=== PATIENT | male | born 1970 | race Caucasian/White ===

== ENCOUNTER 2020-09-06 07:58 | Outpatient (CLI) | payer BC, SELFPAY ==
--- NOTE | 2020-09-06 08:27 | ECG_ITS ---
[facility] Test Date: 2020-09-06 Pat Name: Mino García Department: Room: Gender: Male Diesel Lube Tech: Lindsay Thomas : 1970 Requested By: Jian Burleson Order Number: [id number] Alexandre MD: Barbara Hanna M.D. Interpretive Statements NAME OF STUDY: EXERCISE SESTAMIBI STRESS TEST INDICATION: Chest Pain PROCEDURE: The baseline electrocardiogram showed normal sinus rhythm with normal ST-Ts. At the baseline, the patient's blood pressure was 140/80 mm Hg with a heart rate of 74. The patient exercised for 7 minutes and 40 seconds on a standard Jesús protocol. Patient attained a maximum heart rate of 156 beats per minute(91% of the maximum predicted heart rate) with a blood pressure at the peak exercise of 211/74 mm Hg. The EKG at the peak exercise revealed no significant changes. Patient did not have any chest pain or any significant arrhythmis with the exercise Sestamibi was injected 1 minute prior to the peak exercise During the recovery phase, there were no new changes. Blood pressure at the end of the recovery phase was 171/87 mm Hg with a heart rate of 86 per minute. CONCLUSION: 1. No significant EKG changes with the with [treadmill exercise 2. No exercise-induced chest pain or cardiac arrhythmia 3. Slightly impaired exercise tolerance, attained a maximum of 10.2 METs 4. Sestamibi/Sestamibi perfusion results pending; see separate report. Electronically Signed On 09-10-2020 17:02:36 CDT by Barbara Hanna M.D. [email or web address]/store/[id number]
[2020-09-06 08:28] VITALS: BMI 33.3
--- NOTE | 2020-09-06 08:28 | NMCV_ITS ---
NM mickie perf SPECT r/s* [id number] Mino García Age: 49 Gender: M : 1970 Exam Date: 09/06/2020 09:23 Ordering Phys: Jian Burleson M.D ([email or web address]) Technologist: CARLEY Weathers Exam Location: [facility] Indications: CHEST PAIN STRESS TEST Please see separate stress test report [facility] for full findings IMAGE PROTOCOL Rest/Stress 1 Exercise Day Radiopharmaceutical Dose (mCi) Administration Site Administered by Rest: Tc-99m 10.7 IV CARLEY Coello Sestamibi Stress:Tc-99m 32.8 IV CARLEY Coello Sestamidebbie Rest: 06-Sep-2020 60 Discovery 630 Stress: 06-Sep-2020 15 Discovery 630 Radiopharmaceutical was injected at 85 % maximum heart rate. Images obtained in supine and prone position. SPECT RESULTS Technical Quality: Excellent Raw Data Analysis: Normal Image Corrections: No attenuation or motion correction applied Summed Stress Score: 2 Summed Rest Score: 0 Summed Difference Score: 2 PERFUSION FINDINGS There is a small in size, reversible perfusion defect in the apical wall. This is consistent with ischemia FUNCTIONAL RESULTS (calculated via Gated SPECT) Stress Image LV EF (%): 73 Stress EDV (mL):130 TID: 0.94 Stress ESV (mL):35 FUNCTIONAL FINDINGS: There is normal left ventricular systolic function. IMPRESSIONS 1. There is a reversible perfusion defect in the apical wall consistent with ischemia 2. LV systolic function is normal Jian Burleson MD (Electronically Signed) Final Date: 06 September 2020 19:31 S
[2020-09-06 10:03] VITALS: BP 186/71; PULSE 90
== END 2020-09-06 07:59 | disposition home or self-care (01) ==
LOC: CDL 08:01
PROVIDERS: PCP Family Medicine; Visit Provider Internal Medicine
DX: R07.9 Chest pain, unspecified (principal)
CPT/HCPCS: 78452; 93017; A9500

== ENCOUNTER 2020-11-01 09:51 | Emergency (ER) | payer BC, SELFPAY ==
[2020-11-01 09:57] VITALS: BP 141/87; PULSE 67; RESP 15; TEMP 36.8; O2SAT 98; BMI 33.0
--- NOTE | 2020-11-01 09:59 | XR_ITS ---
WS: [id number] Exam: XR chest 1V portable [id number] Date/Time of Exam: 11/01/2020 10:24 AM Reason For Exam: chest pain No priors. Findings: The lungs are clear and fully expanded. Costophrenic angles are sharp. No infiltrates. Bronchovascula r relief appears normal. Cardiac silhouette is unremarkable. Bony elements are intact. XR/XR chest 1V portable [id number] IMPRESSION: Unremarkable chest radiograph.
--- NOTE | 2020-11-01 09:59 | ECG_ITS ---
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 Measurements Intervals [place] Rate: 66 P: 44 DC: 180 QRS: 9 QRSD: 101 T: 21 QT: 386 QTc: 405 Interpretive Statements SINUS RHYTHM No previous ECG available for comparison Electronically Signed On 11-01-2020 16:15:13 CDT by Jian Burleson M.D. [id number] f
[2020-11-01 10:05] VITALS: O2SAT 97
--- NOTE | 2020-11-01 10:09 | ED_ITS ---
HPI - Chest Pain General: Chief Complaint: Chest Pain Stated Complaint: cp Time Seen by Provider: 11/01/20 09:59 Source: patient Mode of arrival: ambulatory Limitations: no limitations History of Present Illness: HPI narrative: Patient is a 50-year-old male with a history of hypertension, hyperlipidemia, tobacco acuse, and obstructive sleep apnea here along with his for complaints of chest pain. Patient tells me chest pain began abruptly approximately an hour ago while driving. He states pain is located substernally. There is no radiation into his arms, back, or nec k. He does not complain of shortness of breath or difficulty breathing. Nurse stated patient was mildly diaphoretic upon arrival. Patient sees Dr. Butcher for cardiology. He underwent stress test in August of this year. There was one small area of ischemia present. Dr. Butcher recommended coronary angiogram however patient's insurance denied so they decided to treat medically. Patient states he has had chest pains before but nothing like this . He currently rates pain at a 6/10. Sestamibi stress test: CONCLUSION: 1. No significant EKG changes with the with treadmill exercise 2. No exercise-induced chest pain or cardiac arrhythmia 3. Slightly impaired exercise tolerance, attained a maximum of 10.2 METs 4. Sestamibi/Sestamibi perfusion results pending; see separate report. Myocardial Perfusion Scan: IMPRESSIONS 1. There is a reversible perfusion defect in the apical wall consistent with ischemia 2. LV systolic function is normal Associated symptoms: Deny abdominal pain, dyspnea, fever(s), nausea, palpitations, syncope or vomiting Review of Systems Const: Denies: fever(s), chills, body aches, fatigue or malaise Eyes: Denies: change in vision or blurry vision ENMT: Denies: throat pain or odynophagia Card: Reports: chest pain and dyspnea on exertion; Denies: palpitations, irregular heart rhythm, edema, swelling of feet/ankles, lightheadedness, syncope, pre-syncope, orthopnea, leg pain with exertion or acrocyanosis Resp: Denies: dyspnea, productive cough, non-productive cough, hemoptysis or chest congestion GI: Denies: abdominal pain, nausea, vomiting or diarrhea Musc: Denies: neck pain or back pain Skin/Breast: Denies: rash Neuro: Denies: headache(s), numbness in extremities, weakness in extremities, sensory changes, difficulty walking or dizziness [facility] ED PFSH: Medical History Gout Hyperlipidemia Hypertension Obstructive sleep apnea Peptic ulcer disease Tremor Surgical History H/O arthroscopy Hx of appendectomy Family History Father CAD (coronary artery disease) Brother CAD (coronary artery disease) Social History Smoking and tobacco status: former smoker Alcohol intake: never Physical Exam Const: COMMON NORMALS: no acute distress, patient oriented x3, no limitations and alert GENERAL APPEARANCE: cooperative NUTRITIONAL APPEARANCE: overwei ght ORIENTATION/CONSCIOUSNESS: Yes awake, Yes oriented to person, Yes oriented to place and Yes oriented to time HENMT: COMMON NORMALS: normocephalic and atraumatic HEAD & SCALP: normocephalic and atraumatic Chest: COMMONS NORMALS: normal inspection of the chest and normal palpation of entire chest wall Resp: COMMON NORMALS: normal respiratory effort and clear to auscultation bilaterally AUSCULTATION: clear to auscultation bilaterally Cardio: COMMON NORMALS: regular rate and regular rhythm RATE: regular rate RHYTHM: regular rhythm GI: COMMON NORMALS: Normal to inspection, nondistended, normoactive bowel sounds present, Soft to palpation, non-tender, No hepatosplenomegaly present and no masses PALPATION: Yes Soft to palpation and Yes No hepatosplenomegaly present Extremity: COMMON NORMALS: normal to inspection, full ROM, capillary refill normal, no calf tenderness and no pedal edema GENERAL: Yes normal exam except as noted Neuro: COMMON NORMALS: patient oriented x3, moves all extremities, no focal motor deficits and no sensory deficits noted SENSORIUM/ORIENTATION: Yes alert, Yes oriented to person, Yes oriented to place and Yes oriented to time Skin: COMMON NORMALS: no rashes or lesions noted GENERAL SKIN EXAM: no rashes or lesions noted TRAUMA: no lacerations or abrasions Course Vital Signs: Vital signs: Vital Signs Temperature 98.2 F 11/01/20 09:57 Pulse Rate 56 L 11/01/20 13:38 Respiratory Rate 16 11/01/20 13:38 Blood Pressure 114/79 11/01/20 13:38 Pulse Oximetry 98 11/01/20 13:38 MDM - Chest Pain MDM Narrative: Medical decision making narrative: Patient's pain has improved while here. His initial and repeat EKG shows no ischemic changes. Initial troponin was 9 with a negative delta. Patient's optometrist president/practice owner Dr. Burleson is not on-call until 3 today (we don't have anyone for interventional on now). Patient just had stress completed two months ago. There would not be any point to admit to hospitalist unless Dr. Burleson wanted to perform angiogram. I discussed case with Dr. Jurado who agrees. I went in to speak to patient about paging Dr. Burleson and seeing if he would like to admit patient for this procedure however patient states he would like to be discharged and follow up with him as an outpatient. I think this is reasonable given his negative trops and EKGs. Strict return to ED precautions given. Lab Data: Labs: Lab Results 11/01/20 11/01/20 11/01/20 Range/Units 10:15 10:15 10:15 WBC 5.6 (4.0-10.0) 10^3/ uL RBC 5.03 (4.1-5.3) 10^6/u L Hgb 14.7 (11.7-16.6) g/dL Hct 43.4 (42.0-52.0) % MCV 86.3 (80-94) fL MCH 29.2 (28.0-34.0) pg MCHC 33.9 (30.0-36.0) g/dL RDW 12.8 (12.1-15.1) % Plt Count 199 (130-400) 10^3/c mm MPV 10.6 H (7.4-10.4) fL Neut % (Auto) 63.2 % Lymph % (Auto) 24.7 % Garrett % (Auto) 7.3 % Eos % (Auto) 3.2 % Baso % (Auto) 1.1 % Neut # (Auto) 3.52 (1.8-7.7) 10^3/u L Lymph # (Auto) 1.4 (0.8-4.8) 10^3/u L Garrett # (Auto) 0.4 (0.2-0.9) 10^3/u L Eos # (Auto) 0.2 (0.0-0.8) 10^3/u L Baso # (Auto) 0.1 (0.0-0.1) 10^3/u L Nucleated RBC % (a uto) 0 % Nucleated RBCs # 0.0 /100WBC Sodium 144 (136-145) mmol/L Potassium 4.4 (3.5-5.1) mmol/L Chloride 110 H (98-107) mmol/L Carbon Dioxide 23 (22-29) mmol/L Anion Gap 15.4 (5-19) BUN 12 (6-20) mg/dL Creatinine 0.7 (0.7-1.2) mg/dL GFR Calculation 118.9 (90-130) mL/min Glucose 85 (65-115) mg/dL Calculated Osmolal ity 297 H (285-295) mOsm/k g Calcium 9.1 (8.5-10.5) mg/dL Total Bilirubin 0.3 (0.15-1.2) mg/dL AST 16 (0-40) U/L ALT 19 (0-41) U/L Alkaline Phosphata se 86 (40-130) IU/L Troponin T Baselin e 9 (0-15) ng/L Troponin T 120 Min [place] (0-15) ng/L Delta Troponin T (0-10) ABS# Total Protein 6.3 L (6.6-8.7) g/dL Albumin 4.9 (3.5-5.2) g/dL Globulin 1.4 (1.3-4.6) g/dL 11/01/20 Range/Units 12:41 WBC (4.0-10.0) 10^3/ uL RBC (4.1-5.3) 10^6/u L Hgb (11.7-16.6) g/dL Hct (42.0-52.0) % MCV (80-94) fL MCH (28.0-34.0) pg MCHC (30.0-36.0) g/dL RDW (12.1-15.1) % Plt Count (130-400) 10^3/c mm MPV (7.4-10.4) fL Neut % (Auto) % Lymph % (Auto) % Garrett % (Auto) % Eos % (Auto) % Baso % (Auto) % Neut # (Auto) (1.8-7.7) 10^3/u L Lymph # (Auto) (0.8-4.8) 10^3/u L Garrett # (Auto) (0.2-0.9) 10^3/u L Eos # (Auto) (0.0-0.8) 10^3/u L Baso # (Auto) (0.0-0.1) 10^3/u L Nucleated RBC % (a uto) % Nucleated RBCs # /100WBC Sodium (136-145) mmol/L Potassium (3.5-5.1) mmol/L Chloride (98-107) mmol/L Carbon Dioxide (22-29) mmol/L Anion Gap (5-19) BUN (6-20) mg/dL Creatinine (0.7-1.2) mg/dL GFR Calculation (90-130) mL/min Glucose (65-115) mg/dL Calculated Osmolal ity (285-295) mOsm/k g Calcium (8.5-10.5) mg/dL Total Bilirubin (0.15-1.2) mg/dL AST (0-40) U/L ALT (0-41) U/L Alkaline Phosphata se (40-130) IU/L Troponin T Baselin e (0-15) ng/L Troponin T 120 Min [place] 8.14 (0-15) ng/L Delta Troponin T -0.86 L (0-10) ABS# Total Protein (6.6-8.7) g/dL Albumin (3.5-5.2) g/dL Globulin (1.3-4.6) g/dL Imaging Data^: CXR: Radiologist's impression: [address] [id number] ReportSigned Patient: Marcus García #: [id number]: 1970Acct#:[id number]/Sex: 50 / MADM Date: 11/01/20Loc: ERRoom/Bed:Attending Dr: Ordering Provider/Ordering MD: Valentine Drew Date of Service: 11/01/20 Procedure(s): XR chest 1V portable [id number] Accession Number(s): [id number] Report Number: [id number] WS: [id number] Exam: XR chest 1V portable [id number] Date/Time of Exam: 11/01/2020 10:24 AM Reason For Exam: chest pain No priors. Findings: The lungs are clear and fully expanded. Costophrenic angles are sharp. No infiltrates. Bronchovascular relief appears normal. Cardiac silhouette is unremarkable. Bony elements are intact. XR/XR chest 1V portable [id number] IMPRESSION: Unremarkable chest radiograph. Dictated By:Jacques Leos, DOSigned By:Jacques Leos, DOSigned Date/Time:11/01/209DD/ 103 EKG Data^: EKG 1: EKG interpretation date: 11/01/20 EKG interpretation time: 09:59 Interpretation: Sinus rhythm Rate [address] elevation or depression changes noted EKG 2: EKG interpretation date: 11/01/20 EKG interpretation time: 12:04 Interpretation: Sinus bradycardia Rate [address] elevation or depression changes noted No acute changes when compared to EKG performed earlier on same visit Discharge Plan Discharge Patient Disposition: Home Clinical Impression: Chest pain Qualifiers: Chest pain type: unspecified Qualified Code(s): R07.9 - Chest pain, unspecified Condition: Stable Prescriptions: No Action albuterol sulfate 90 mcg/actuation HFA aerosol inhaler 2 puff inhalation Q6H PRN (Reason: Shortness Of Breath) RF: 0 allopurinol 100 mg tablet 100 mg PO DAILY RF: 0 cabergoline 0.5 mg tablet 0.5 mg PO .2 x week RF: 0 colchicine [Colcrys] 0.6 mg tablet 0.6 mg PO BID PRN (Reason: gout) RF: 0 loratadine [Allergy Relief (loratadine)] 10 mg tablet 10 mg PO DAILY RF: 0 omeprazole 20 mg capsule,delayed release(DR/EC) 20 mg PO DAILY RF: 0 ropinirole 0.25 mg tablet 0.25 mg PO BEDTIME RF: 0 simvastatin 20 mg tablet 20 mg PO DAILY RF: 0 metoprolol succinate 25 mg tablet extended release 24 hr 25 mg PO DAILY Qty: 30 RF: 0 amlodipine 5 mg tablet 5 mg PO DAILY Qty: 90 RF: 3 Discharge Orders: Discharge ED (Routine); Ordered 11/01/20 Ordered By: Valentine Drew Referrals: Caim Fair MD [Primary Care Provider] - Jian Burleson M.D [Physician] - Patient Instructions: Chest Pain (ED) Activity Restrictions/Additional Instructions: As we discussed case management should contact you shortly to set you up with your optometrist president/practice owner for reevaluation. You need to return to the emergency department for the return of severe chest pain, shortness of breath, difficulty breathing, or any other concerns you may have. Coding Level of Care Code ED Sales And Service Change Leader for [place] Fwd Exam Comprehensive
[2020-11-01 10:22] LABS: Basophils # 0.1 10^3/uL (0.0-0.1); Basophils % 1.1 %; Eosinophils # 0.2 10^3/uL (0.0-0.8); Eosinophils % 3.2 %; Hematocrit 43.4 % (42.0-52.0); Hemoglobin 14.7 g/dL (11.7-16.6); Lymphocytes # 1.4 10^3/uL (0.8-4.8); Lymphocytes % 24.7 %; Mean Corpuscular HGB Conc 33.9 g/dL (30.0-36.0); Mean Corpuscular Hemoglobin 29.2 pg (28.0-34.0); Mean Corpuscular Volume 86.3 fL (80-94); Mean Platelet Volume 10.6 fL (7.4-10.4); Monocytes # 0.4 10^3/uL (0.2-0.9); Monocytes % 7.3 %; Neutrophils # 3.52 10^3/uL (1.8-7.7); Neutrophils % 63.2 %; Nucleated Red Blood Cells % 0 %; Platelet Count 199 10^3/cmm (130-400); Red Blood Count 5.03 10^6/uL (4.1-5.3); Red Cell Distribution Width 12.8 % (12.1-15.1); White Blood Count 5.6 10^3/uL (4.0-10.0)
[2020-11-01] MEDS: aspirin 81 mg Chew Tablet 324 MG PO (10:26)
[2020-11-01] MEDS: nitroglycerin 0.4 mg sublingual Tablet SUBLINGUAL (10:26)
[2020-11-01] MEDS: morphine 4 mg/mL SDV 1 mL IVP (10:26)
[2020-11-01 11:00] LABS: Troponin(5th) Baseline 9 ng/L (0-15)
[2020-11-01 11:01] LABS: Alanine Aminotransferase 19 U/L (0-41); Albumin Level 4.9 g/dL (3.5-5.2); Alkaline Phosphatase 86 IU/L (40-130); Anion Gap 15.4 (5-19); Aspartate Amino Transferase 16 U/L (0-40); Blood Urea Nitrogen 12 mg/dL (6-20); Calcium 9.1 mg/dL (8.5-10.5); Carbon Dioxide 23 mmol/L (22-29); Chloride 110 mmol/L (98-107); Globulin 1.4 g/dL (1.3-4.6); Glomerular Filtration Rate 118.9 mL/min (90-130); Glucose 85 mg/dL (65-115); Osmolality Calculated 297 mOsm/kg (285-295); Potassium 4.4 mmol/L (3.5-5.1); Sodium 144 mmol/L (136-145); Total Bilirubin 0.3 mg/dL (0.15-1.2); Total Protein 6.3 g/dL (6.6-8.7)
[2020-11-01 11:07] VITALS: BP 106/59; PULSE 57; RESP 12; O2SAT 94
--- NOTE | 2020-11-01 11:59 | ECG_ITS ---
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 Measurements Intervals [place] Rate: 50 P: 14 DC: 183 QRS: -1 QRSD: 102 T: 22 QT: 423 QTc: 388 Interpretive Statements SINUS BRADYCARDIA Compared to ECG 11/01/2020 09:59:29 Sinus rhythm no longer present Electronically Signed On 11-01-2020 16:20:47 CDT by Jian Burleson M.D. [email or web address] Gamesallegiance specialty hospital of greenvilleMind on Gamesmercy health st. charles hospitalSolidmation/store/OM/[id number]/[id number]
[2020-11-01 13:09] LABS: Troponin 5 2HR 8.14 ng/L (0-15); Troponin 5 2HR Delta -0.86 ABS# (0-10)
[2020-11-01 13:38] VITALS: BP 114/79; PULSE 56; RESP 16; O2SAT 98
--- NOTE | 2020-11-02 13:43 | DCPLANNER ---
international sales manager had message to schedule a follow up appointment for patient with heart care. international sales manager called heart care, spoke with Megan, gave clinic patients information. A follow up appointment was scheduled for , November 18, 2020 at 3:[address] Burleson. international sales manager called patient and gave patient the appointment information.
--- NOTE | 2021-01-04 07:53 | DCPLANNER ---
Patient had a follow up appointment scheduled for 11.18.20 at [facility] [place] - appointment was cancelled.
== END 2020-11-01 13:39 | disposition home or self-care (01) ==
PROVIDERS: Emergency Provider Physician Assistant; PCP Family Medicine
DX: R07.9 Chest pain, unspecified (principal); E78.5 Hyperlipidemia, unspecified; I10 Essential (primary) hypertension; Z87.891 Personal history of nicotine dependence
CPT/HCPCS: 71045; 80053; 84484; 85025; 93005; 96374; 99284; J2270

== ENCOUNTER → 2021-04-12 09:12 | Outpatient (BNVA) | payer BC, SELFPAY | PROVIDERS: PCP Family Medicine; Visit Provider Physician Assistant | DX: M25.521 Pain in right elbow (principal) | CPT/HCPCS: 73080 ==

== ENCOUNTER 2021-04-18 07:49 | Outpatient (CLI) | payer BC, SELFPAY ==
--- NOTE | 2021-04-18 08:00 | MR_ITS ---
WS: [id number] INDICATION: Trauma right elbow with audible pop TECHNIQUE: MR of the right elbow without gadolinium enhancement. Axial T1, coronal T1, axial T2, dante nal PD, coronal STIR, sagittal PD, and axial 3-D FSPGR imaging FINDINGS: High-grade complete tear of the distal biceps tendon at the radial tuberosity insertion. Di ffuse edema and irregularity with retraction of the biceps tendon. No normal fibers visualized distal ly. Biceps tendon is retracted to the antecubital fossa. Small well-corticated appearing loose bodies at the medial aspect radialcapitellar articulation. These appear well-circumscribed and are likely c hronic rather than acute avulsions. Hypertrophic spurring with calcific tendinitis involving the lateral epicondyle compatible with later al epicondylitis. Small joint effusion. Small amount of edema involving the medial aspect of the capi tellum. Medial flexor tendon complex origin appears normal. MR/MR elbow RT wo con* [id number] IMPRESSION: 1. High-grade complete tear of the distal biceps tendon from the insertion at the radial tuberosity with retraction to the level of the antecubital fossa. La xity with fluid along the distal biceps tendon sheath. 2. Small joint effusion with soft tissue edema involving the anterior compartm ent. 3. Degenerative appearing hypertrophic spurring along the lateral epicondyle w ith calcific tendinitis compatible with lateral epicondylitis. 4. Well-corticated loose bodies appear entrapped within the joint at the radio capitellar articulation. These are likely chronic rather than acute avulsions a nd appear well corticated. 5. Small amount of subchondral edema involving the medial aspect of the capite llum adjacent to one of the loose bodies. 6. No other significant findings.
== END 2021-04-18 07:50 | disposition home or self-care (01) ==
PROVIDERS: PCP Family Medicine; Visit Provider Family Medicine
DX: S46.211A Strain of muscle, fascia and tendon of other parts of biceps, right arm, initial encounter (principal); X58.XXXA Exposure to other specified factors, initial encounter; M25.421 Effusion, right elbow
CPT/HCPCS: 73221

== ENCOUNTER → 2021-04-21 09:22 | Outpatient (BNVA) | payer BC, SELFPAY | PROVIDERS: PCP Family Medicine; Referring Provider Orthopaedic Surgery; Visit Provider Orthopaedic Surgery | DX: Z01.812 Encounter for preprocedural laboratory examination (principal); Z20.822 Contact with and (suspected) exposure to COVID-19 | CPT/HCPCS: 87635 ==

== ENCOUNTER 2021-04-28 08:30 | Day surgery (SDC) | payer BC, SELFPAY ==
[2021-04-27 10:24] VITALS: BMI 34.2
[2021-04-28] VITALS (10 sets, daily range): BP systolic 121–168; BP diastolic 76–92; PULSE 60–74; RESP 16–19; TEMP 36.3–36.5; O2SAT 94–100
--- NOTE | 2021-04-28 | XR_ITS ---
WS: [id number] Exam: XR elbow RT 2V [id number] Date/Time of Exam: 04/28/2021 12:00 AM Reason For Exam: bicep tendeon tear Limited intraoperative AP and lateral images of the right elbow are submitted for evaluation. Postoperative change with a small cortical plate noted in the region of the radial tuberosity. No oth er postoperative changes of the elbow are identified.
--- NOTE | 2021-04-28 | SCC_ITS ---
Procedure Done: Open repair right biceps 45.6 seconds of fluoroscopic guidance, for a cumulative dose of 1.67 mGy, was provided to Dr. Aviles by the radiology department. C-arm images of the RIGHT elbow were saved for the patient's permanent record. [facility]
--- NOTE | 2021-04-28 09:24 | ANES.PREANE2 ---
Pre-Anesthetic Assessment Pre-Anesthetic Assessment: Height/Weight: Height 1.85 m Weight 117.934 kg Temp Pulse Resp BP Pulse Ox 97.3 F L 60 18 121/76 100 04/28/21 08:52 04/28/21 08:52 04/28/21 08:52 04/28/21 08:52 04/28/21 08:52 Preop Diagnosis: Rupture right distal biceps Proposed Procedure: Operation Date: 04/28/21 09:45 Proposed Procedures p Tendon Repair Bicep 18055 S46.219A(Right) - Yonas Aviles MD Was Beta John taken within 24 hours: Yes Was Clonidine taken within 24 hours: N/A Last intake: Intake Last Liquid Date 04/27/21 Last Liquid Time 23:55 Last Solid Date 04/27/21 Last Solid Time 22:00 Social: Social History: No alcohol and No tobacco Exam: Pre-Anes Outpt Exam: alert, oriented x 3, clear to auscultation bilaterally and regular rate & rhythm Airway: Submandibular: WNL Cervical ROM: WNL MP: 3 Dentition: Full Pulmonary: Pulmonary: Asthma and Sleep apnea CV/HEM: CV/HEM: HTN GI: GI: GERD Metabolic: Metabolic: Hyperlipidemia and Morbid obesity Anesthetic Plan: ASA status: 3 Anesthesia: General Risk of > 500 ml blood loss (7ml/kg in children): No PFSH Anesthesia PFSH: Medical History Gout Hyperlipidemia Hypertension Obstructive sleep apnea Peptic ulcer disease Tremor Surgical History H/O arthroscopy Hx of appendectomy Family History Father CAD (coronary artery disease) Brother CAD (coronary artery disease) Social History Alcohol intake: never Data Anesthesia Cardiac Studies: No Data to Display
[2021-04-28] MEDS: sodium chloride 0.9% 1,000 ML 30 ML IV (09:50)
--- NOTE | 2021-04-28 10:01 | W.PM.OPSUD ---
Surgery/Procedure H&P Update DATE OF PROCEDURE: April 28, 2021 DATE H&P PERFORMED: 04/19/21 H&P UPDATE INFORMATION: I have reviewed H&P completed within last 30 days PREOP DIAGNOSIS: Rupture right distal biceps PLANNED PROCEDURE: Operation Date: 04/28/21 09:45 Proposed Procedures p Tendon Repair Bicep [id number] S46.219A(Right) - Yonas Aviles MD
[2021-04-28] MEDS: clindamycin 900 MG/50 ML PREMIX 100 MG IV (10:13)
--- NOTE | 2021-04-28 12:17 | PM.OP ---
Operative Report Date of procedure: April 28, 2021 Pre-op Diagnosis: Rupture right distal biceps Post-op diagnosis: same Post-op Findings: Same Procedure Done: Open repair right biceps Implants: Fuller [employer] Nephew Endobutton Pathology: none sent Surgeon: Yonas Aviles Anesthesia: General Estimated blood loss (mL): 10 Tourniquet time (min): 70 Complications: None Findings: The patient had a 90% avulsion of his right distal biceps from its insertion on the tuberosity Condition: stable Disposition: PACU Procedure: The patient was taken to the operating room and given 900 mg of clindamycin. He is prepped and draped supine with his right arm on a arm table. A transverse incision was made over the distal flexion crease over a distance of approximately 5 cm. Superficial veins were dissected using a blunt hemostat and the fascia divided revealing the biceps tendon in the near complete avulsion. Utilizing a scissor the rupture was completed and approximately 1 cm of degenerative biceps removed with a scalpel blade. A Fuller and Nephew Ultratape suture was then passed beginning proximally the tendon in a Krak?w fashion incorporating the Endobutton distally with 4 mm of the gap between the tendon and passing again proximally with locking Krak?w sutures. The free ends of the tape were then secured. The biceps tendon passed likely through a 8 mm sizer. Dissection could easily be accomplished down to the radial tuberosity through the previous tunnel. Under visualization of fluoroscopy a guidepin was driven into the radial tuberosity with the arm in maximal supination. Position of the pin was verified it was passed through the second cortex and out through the skin was grasped with a hemostat. 4.5 mm Endobutton was passed through both cortices. An 8 mm reamer was passed through the most proximal cortex. The guidepin was then used to shuttle 2 free sutures through the ends of the Endobutton through the tunnels. The Endobutton was passed and felt to engage. Intraoperative imaging showed the Endobutton flat on the dorsal cortex of the radius. The passing sutures were removed. The tourniquet was deflated. Deep tissues were closed with 2-0 Vicryl. The skin was closed with skin azul. Sterile dressings were applied. The patient placed in a hinged elbow brace locked in 40 degrees of extension and neutral rotation of the wrist. The patient was extubated and taken to the recovery room in stable condition.
--- NOTE | 2021-04-28 12:28 | P.PCN_ITS ---
PACU note PACU note: VSS, Good respiratory effort, report to AQUACULTURE AND FISHERIES PROFESSOR Post-Anesthesia Exam: awake
--- NOTE | 2021-04-28 12:28 | PM.PACU ---
PACU note PACU note: VSS, Good respiratory effort, report to PULP DRIER Post-Anesthesia Exam: awake
--- NOTE | 2021-04-28 12:35 | SUR.PHASEI ---
1224 PT TO PACU HURTING AWAKE DR UGARTE AT BEDSIDE RT HAND PINK WARM PT MOVES THUMB AND WRIST TO COMMAND, SEE DILAUDID GIVEN BY Carlie JEAN CRNA AT BEDSIDE ON ADMIT
[2021-04-28] MEDS: HYDROmorphone 1 mg/mL INJ 1 mL 0.5 MG IVP (12:43)
--- NOTE | 2021-04-28 12:57 | SUR.PHASEI ---
PT AWAKE ALERT TAKING ICE CHIPS SATS 94 ON 3NC PT USES C PAP AT HOME, PT ENCOURAGED TO USE CPAP TODAY WHILE NAPPING. REPORT TO OPS, VSS. DRESSING D/I TO RT ARM WITH LOCKED SLING/BRACE IN PLACE.
[2021-04-28] MEDS: oxyCODONE 5 mg IR Tab/Cap PO (13:18)
--- NOTE | 2021-04-28 13:41 | ANE.PACU2 ---
Inpatient post-anesthesia follow up: Airway intact: Yes Vital signs: Temperature 97.6 F Pulse Rate 72 Respiratory Rate 18 Blood Pressure 149/83 Pulse Oximetry 95 Oxygen Delivery Me thod Nasal Cannula Oxygen Flow Rate 2 Fraction of Inspir ed Oxygen Hydration adequate: Yes Nausea and vomiting: No Pain level: 3 Mental status: Baseline
== END 2021-04-28 13:45 | disposition home or self-care (01) ==
PROVIDERS: PCP Family Medicine; Visit Provider Orthopaedic Surgery
PROC: (CPT 24341; principal; 2021-04-28 09:35)
DX: M25.511 Pain in right shoulder (principal); I10 Essential (primary) hypertension; Z88.2 Allergy status to sulfonamides; X50.0XXA Overexertion from strenuous movement or load, initial encounter; Y93.89 Activity, other specified
CPT/HCPCS: 23430; 73070; 76000; J0330; J1100; J1170; J1885; J2405; J2704; J3010; J3490; J7030

== ENCOUNTER → 2022-07-12 10:58 | Outpatient (BNVA) | payer BC, SELFPAY | PROVIDERS: PCP Family Medicine; Visit Provider Podiatrist Foot & Ankle Surgery | DX: M79.671 Pain in right foot (principal); M79.672 Pain in left foot; B35.1 Tinea unguium; M20.5X1 Other deformities of toe(s) (acquired), right foot | CPT/HCPCS: 36415; 73630; 80053 ==

== ENCOUNTER → 2022-08-23 12:46 | Outpatient (BNVA) | payer BC, SELFPAY | PROVIDERS: PCP Family Medicine; Visit Provider Podiatrist Foot & Ankle Surgery | DX: B35.1 Tinea unguium (principal) | CPT/HCPCS: 80053 ==

== ENCOUNTER 2022-11-01 12:55 | Outpatient (CLI) | payer BC, SELFPAY ==
--- NOTE | 2022-11-01 13:00 | USCV_ITS ---
Mino García Age: 52 Gender: M : 1970 Exam Date: 11/01/2022 13:07 Ordering Phys: Jian Burleson M.D ([email or web address]) Technologist: Kayden Zhang Exam Location: [facility] – [place] Indication: chest pain BP: 136 / 75 HR: 63 Rhythm: Sinus Technical Quality: Adequate MEASUREMENTS (Male / Female) Normal Values 2D ECHO LV Diastolic Diameter PLAX 4.9 cm 4.2 - 5.9 / 3.9 - 5.3 cm LV Systolic Diameter PLAX 2.9 cm IVS Diastolic Thickness 1.4 cm 0.6 - 1.0 / 0.6 - 0.9 cm IVS Systolic Thickness 1.9 cm LVPW Diastolic Thickness 1.2 cm 0.6 - 1.0 / 0.6 - 0.9 cm LVPW Systolic Thickness 1.8 cm LVOT Diameter 2.0 cm LV Ejection Fraction 2D Teich 72.9 % LV Ejection Fraction MOD 2C 69.9 % LV Ejection Fraction 2C AL 70.5 % LA Diameter 4.4 cm Aorta at Sinotubular Diameter 2.6 cm IVC Diameter 1.2 cm M-MODE Aortic Annulus Diameter 3.8 cm LA Ao Ratio MM 1.2 MV E Point Septal Separation 0.9 cm DOPPLER AV Peak Velocity 172.0 cm/s LVOT Peak Velocity 101.0 cm/s AV Area Cont Eq vti 2.7 cm squared AV Area Cont Eq pk 1.9 cm squared MV Area PHT 5.0 cm squared Mitral E to A Ratio 1.2 MV E' Velocity 58.0 cm/s Mitral E to MV E' Ratio 13.1 Mitral E to LV E' Lateral Ratio 12.2 Mitral E to LV E' Septal Ratio 14.1 TR Peak Velocity 325.0 cm/s TR Peak Gradient 42.3 mmHg TV Peak E Velocity 117.0 cm/s Right Atrial Pressure 3.0 mmHg Pulmonary Artery Systolic Pressu 45.3 mmHg FINDINGS Left Ventricle Left ventricle is normal size. LV systolic function is normal with EF of 60 to 65%. No regional wall motion abnormalities are seen. Right Ventricle Normal size and function Right Atrium Normal in size Left Atrium Normal in size Mitral Valve Structurally normal mitral valve. Mild mitral regurgitation. Aortic Valve Structurally normal aortic valve. No significant stenosis or regurgitation. Tricuspid Valve Mild tricuspid regurgitation. Pulmonary artery systolic pressure is 45 to 50 mmHg. This is consistent with moderate pulmonary hypertension Pulmonic Valve Not well visualized Pericardium Normal Aorta Normal in size IVC Appears to be normal CONCLUSIONS LV systolic function is normal with EF of 60 to 65%. Mild tricuspid regurgitation. Moderate pulmonary hypertension No comparison studies are available Jian Burleson MD (Electronically Signed) Final Date: 10 November 2022 17:58 S
== END 2022-11-01 12:56 | disposition home or self-care (01) ==
LOC: RAD 12:56
PROVIDERS: PCP Family Medicine; Visit Provider Internal Medicine
DX: R07.9 Chest pain, unspecified (principal); R06.02 Shortness of breath
CPT/HCPCS: 93306

== ENCOUNTER → 2023-07-23 14:00 | Outpatient (BNVA) | payer BC, SELFPAY | PROVIDERS: PCP Family Medicine; Visit Provider Podiatrist Foot & Ankle Surgery | DX: G57.62 Lesion of plantar nerve, left lower limb; B35.1 Tinea unguium | CPT/HCPCS: 73630 ==

== ENCOUNTER 2024-01-30 09:48 | Day surgery (SDC) | payer BC, SELFPAY ==
[2024-01-30 10:23] VITALS: BP 140/86; PULSE 59; RESP 18; TEMP 36.7; O2SAT 97
--- NOTE | 2024-01-30 10:33 | ANES.PREANE2 ---
Pre-Anesthetic Assessment Height/Weight: Height 1.85 m Weight 122.47 kg Temp Pulse Resp BP Pulse Ox O2 Del Method 98.1 F 59 L 18 140/86 97 Room Air 01/30/24 10:23 01/30/24 10:23 01/30/24 10:23 01/30/24 10:23 01/30/24 10:23 01/30/24 10:23 Preop Diagnosis: GERD, H/O polyps Operation Date: 01/30/24 10:45 Proposed Procedures p EGD 17734, 61280, G0105, K21.9, K59.04, R10.31, Z12.11(Not Applicable) - Varinder Douglas DO s Colonoscopy(Not Applicable) - Varinder Douglas DO Familial anesthetic complications: none Was Beta John taken within 24 hours: N/A Was Clonidine taken within 24 hours: N/A Last intake: Intake Last Liquid Date 01/29/24 Last Liquid Time 22:00 Last Solid Date 01/28/24 Last Solid Time 20:00 Social No alcohol and No tobacco Exam alert and oriented x 3 Airway Submandibular: within normal limits Cervical ROM: within normal limits Mallampati: Class III Dentition: full History/ROS No significant history except as noted Pulmonary Exertional Dyspnea and Sleep Apnea CV/HEM Hypertension None reported Hepatic None reported GI Gastroesophageal Reflux Disease Metabolic Hyperlipidemia and Morbid Obesity Musc/skel Lower Back Pain and Osteoarthritis/DJD Neuropsych None reported Anesthetic Plan ASA status: 3 Anesthesia: Anesthesia Evaluation, General and MAC Medications/Allergies Home Medications Medication Instructions Recorded Confirmed Last Taken Type cabergoline 0.5 mg tablet 0.5 mg PO .2 x week 07/05/20 01/28/24 01/29/24 History loratadine 10 mg tablet (Allergy 10 mg PO DAILY 07/05/20 01/28/24 01/29/24 History Relief (loratadine)) ropinirole 0.25 mg tablet 0.25 mg PO BEDTIME 07/05/20 01/28/24 01/29/24 History simvastatin 20 mg tablet 20 mg PO DAILY 07/05/20 01/28/24 01/29/24 History amlodipine 10 mg tablet 10 mg PO DAILY #90 tabs 08/08/23 01/28/24 01/29/24 Rx metoprolol succinate 25 mg 25 mg PO DAILY #90 tabs 08/29/23 01/28/24 01/29/24 Rx tablet,extended release 24 hr pantoprazole 40 mg tablet,delayed 40 mg PO BID 6 weeks #84 tabs 11/09/23 01/28/24 01/29/24 Rx release (Protonix) Allergies Allergy/AdvReac Type Severity Reaction Status Date / Time cefazolin [From Ancef] Allergy Lungs fill Verified 01/28/24 08:52 up codeine Allergy Hives Verified 01/28/24 08:52 iodine Allergy Hives Verified 01/28/24 08:52 Sulfa (Sulfonamide Allergy Kidney pain Verified 01/28/24 08:52 Antibiotics) [facility] Anesthesia Medical History Gout Obstructive sleep apnea Peptic ulcer disease Tremor Hyperlipidemia Hypertension Surgical History Hx of appendectomy H/O arthroscopy Family History Father CAD (coronary artery disease) Brother CAD (coronary artery disease) Social History Smoking and tobacco/nicotine status: never used tobacco/nicotine Alcohol intake: never Substance/Drug Use: never Data Anesthesia Cardiac Studies: Echocardiogram 11/01/22 Sestamibi Stress Test (Cardiology) 09/06/20
[2024-01-30] MEDS: sodium chloride 0.9% 1,000 ML 30 ML IV (10:35)
--- NOTE | 2024-01-30 11:06 | PM.HP ---
Providers/Chief Complaint Primary Care Provider: Cami Fair MD Chief Complaint: K21.9, K59.04, R10.31, Z12.11 History of Present Illness Mino García is a 53 year old male Review of Systems General: Reports: 10 or more systems reviewed and unremarkable except in HPI and below Medications/Allergies Home Medications Medication Instructions Recorded Confirmed Last Taken Type cabergoline 0.5 mg tablet 0.5 mg PO .2 x week 07/05/20 01/28/24 01/29/24 History loratadine 10 mg tablet (Allergy 10 mg PO DAILY 07/05/20 01/28/24 01/29/24 History Relief (loratadine)) ropinirole 0.25 mg tablet 0.25 mg PO BEDTIME 07/05/20 01/28/24 01/29/24 History simvastatin 20 mg tablet 20 mg PO DAILY 07/05/20 01/28/24 01/29/24 History amlodipine 10 mg tablet 10 mg PO DAILY #90 tabs 08/08/23 01/28/24 01/29/24 Rx metoprolol succinate 25 mg 25 mg PO DAILY #90 tabs 08/29/23 01/28/24 01/29/24 Rx tablet,extended release 24 hr pantoprazole 40 mg tablet,delayed 40 mg PO BID 6 weeks #84 tabs 11/09/23 01/28/24 01/29/24 Rx release (Protonix) Allergies Allergy/AdvReac Type Severity Reaction Status Date / Time cefazolin [From Ancef] Allergy Lungs fill Verified 01/28/24 08:52 up codeine Allergy Hives Verified 01/28/24 08:52 iodine Allergy Hives Verified 01/28/24 08:52 Sulfa (Sulfonamide Allergy Kidney pain Verified 01/28/24 08:52 Antibiotics) PFSH Acute PFSH: Medical History Gout Obstructive sleep apnea Peptic ulcer disease Tremor Hyperlipidemia Hypertension Surgical History Hx of appendectomy H/O arthroscopy Family History Father CAD (coronary artery disease) Brother CAD (coronary artery disease) Social History Smoking and tobacco/nicotine status: never used tobacco/nicotine Alcohol intake: never Substance/Drug Use: never Vitals/I&O/Wt Last Vital Signs Temp 98.1 F 01/30/24 10:23 Pulse 59 L 01/30/24 10:23 Resp 18 01/30/24 10:23 BP 140/86 01/30/24 10:23 Pulse Ox 97 01/30/24 10:23 O2 Del Method Room Air 01/30/24 10:23 Weight last 48 hrs Weight 270 lb A&P Assessment and plan (1) GERD (gastroesophageal reflux disease): (2) Colon cancer screening: Plan EGD and colonoscopy Attestations Medical Necessity Statement*: Home Coding Level of Care Code Acute Code for Chg Fwd Diagnoses GERD (gastroesophageal reflux disease) K21.9 Colon cancer screening Z12.11
[2024-01-30] MEDS: EPINEPHrine 1 mg/mL INJ XX (11:22)
[2024-01-30 11:42] VITALS: BP 98/66; PULSE 67; RESP 12; TEMP 36.5; O2SAT 94
[2024-01-30 11:52] VITALS: BP 126/77; PULSE 66; RESP 14; TEMP 36.2; O2SAT 95
[2024-01-30 12:03] VITALS: BP 139/75; PULSE 66; RESP 16; O2SAT 95
--- NOTE | 2024-01-30 12:19 | ANE.PACU2 ---
Inpatient post-anesthesia follow up: Airway intact: Yes Vital signs: Temperature 97.1 F Pulse Rate 66 Respiratory Rate 16 Blood Pressure 139/75 Pulse Oximetry 95 Oxygen Delivery Me thod Room Air Oxygen Flow Rate 3 Fraction of Inspir ed Oxygen Hydration adequate: Yes Nausea and vomiting: No Pain level: 1 Mental status: Baseline
== END 2024-01-30 12:19 | disposition home or self-care (01) ==
PROVIDERS: PCP Family Medicine; Visit Provider Surgery
PROC: 0DJ08ZZ Inspection of Upper Intestinal Tract, Via Natural or Artificial Opening Endoscopic (ICD-10-PCS; CPT 43235; principal; 2024-01-30 10:45)
PROC: 0DJD8ZZ Inspection of Lower Intestinal Tract, Via Natural or Artificial Opening Endoscopic (ICD-10-PCS; CPT 45378; 2024-01-30 10:45)
DX: Z12.11 Encounter for screening for malignant neoplasm of colon (principal); K21.9 Gastro-esophageal reflux disease without esophagitis; K29.50 Unspecified chronic gastritis without bleeding; K57.30 Diverticulosis of large intestine without perforation or abscess without bleeding; K64.8 Other hemorrhoids; G47.33 Obstructive sleep apnea (adult) (pediatric); Z87.11 Personal history of peptic ulcer disease; E78.5 Hyperlipidemia, unspecified; I10 Essential (primary) hypertension; E66.01 Morbid (severe) obesity due to excess calories; Z68.35 Body mass index [BMI] 35.0-35.9, adult
CPT/HCPCS: 43239; 43255; 45380; 88305; 88342; J0171; J2704; J7030

== ENCOUNTER → 2025-02-18 07:27 | Outpatient (BNVA) | payer BC, SELFPAY | PROVIDERS: PCP Family Medicine; Visit Provider Podiatrist Foot & Ankle Surgery | DX: M25.572 Pain in left ankle and joints of left foot (principal) | CPT/HCPCS: 73610 ==

== ENCOUNTER 2025-03-16 15:48 | Outpatient (CLI) | payer BC, SELFPAY ==
--- NOTE | 2025-03-16 16:00 | MR_ITS ---
WS: [id number] MRI LEFT ANKLE WITHOUT CONTRAST. COMPARISON: Radiograph 02/18/2025 Multiplanar, multisequence imaging is performed without contrast. Large amount of marrow edema in the anterior talus extending into the neck. There is marrow edema in approximately 50% of the talus with the edema extending along the inferior talar surface. No edema in the anterior calcaneal surface. Distal tibia and fibula are intact. No osteochondral lesions along the talar dome. There is narrowing of the anterior subtalar joint. Fluid signal extending between the sustentaculum marvin and navicular in the expected location of the spring ligament. Spring ligament is not identified as a normal structure. Mildly suspicious for spring ligament tear. All 3 bands of the spring ligament are difficult to identify as separate structures. Most signal abnormality and fluid appears associated with the medial plantar oblique spring ligament. Fluid along the inferior plantar longitudinal the spring ligament. As the spring ligament merges with the tibial spring band of the superficial deltoid ligament abnormal signal is also identified. In the superficial portion of the deltoid ligament there is mixed signal. In the central tibia spring lig ament there is fluid. There is thinning of the proximal tendon and mild thickening distally as it merges with the abnormal spring ligament. The deep deltoid ligament with increased central signal. This increased signal in the deep deltoid can be normal. No obvious tear is identified in the deep ligament. Abnormal signal in the sinus Tarsi. The cervical ligament is thinned with heterogeneous signal but no full-thickness tear. Bifurcate ligament is small caliber but intact. Interosseous ligament is not identified and may be torn. Soft tissue edema anterior to the tibiotalar joint closely associated with the marrow edema in the talus. Anterior inferior and posterior inferior tibiofibular ligaments are intact. Anterior talofibular and posterior talofibular ligaments are normal. No fluid in the interosseous membrane. Achilles tendon is negative. Peroneal tendons as visualized are normal. Flexor hallucis longus, flexor digitorum longus and the posterior tibialis tendon is normal. Normal anterior tibialis tendon. Extensor tendons are negative. MR/MR ankle LT wo con* [id number] IMPRESSION: 1. Large amount of marrow edema in the anterior talus extending into the neck. 2. No osteochondral lesions along the talar dome. 3. Narrowing of the anterior subtalar joint with fluid. 4. Fluid signal extending between the sustentaculum marvin and navicular into th e expected location of the spring ligament. Partial tear of the spring ligament . The most signal abnormality is noted near the medial plantar oblique spring l igament and the inferior plantar longitudinal spring ligament. 5. Abnormal signal extends into the tibial spring band of the superficial delt oid ligament which merges with the abnormal spring ligament. There is mixed sig nal with fluid centrally in the tibial spring band. Suspect chronic tear. 6. Amorphous signal in the sinus Tarsi. Heterogeneous signal in the cervical l igament but does appear intact. The interosseous ligament is not identified and may be torn.
== END 2025-03-16 15:49 | disposition home or self-care (01) ==
PROVIDERS: Visit Provider Podiatrist Foot & Ankle Surgery
DX: M95.8 Other specified acquired deformities of musculoskeletal system (principal)
CPT/HCPCS: 73721

== ENCOUNTER 2025-03-19 13:46 | Outpatient (CLI) | payer BC, SELFPAY | END 2025-03-19 13:47 | disposition home or self-care (01) | LOC: SPT 13:52 | PROVIDERS: PCP Family Medicine; Visit Provider Podiatrist Foot & Ankle Surgery | DX: Z46.89 Encounter for fitting and adjustment of other specified devices (principal); M25.579 Pain in unspecified ankle and joints of unspecified foot | CPT/HCPCS: L4361 ==

== ENCOUNTER → 2025-04-27 16:07 | Outpatient (BNVA) | payer BC, SELFPAY | PROVIDERS: PCP Family Medicine; Visit Provider Nurse Practitioner | DX: S86.912A Strain of unspecified muscle(s) and tendon(s) at lower leg level, left leg, initial encounter (principal); W18.39XA Other fall on same level, initial encounter; M25.462 Effusion, left knee | CPT/HCPCS: 73562 ==

== ENCOUNTER 2025-05-21 06:47 | Outpatient (CLI) | payer BC, SELFPAY ==
--- NOTE | 2025-05-21 07:15 | MRR_ITS ---
PROCEDURE INFORMATION: Exam: MR Left Lower Extremity Joint Without Contrast, Knee Exam date and time: 05/21/2025 7:18 AM Age: 54 years old Clinical indication: Prior surgery; Surgery date: 6+ months; Surgery type: Lt knee scope; Left knee pain S/P fall apr 25; Additional info: Left knee pain, any day except 05/25/2025 TECHNIQUE: Imaging protocol: Magnetic resonance imaging of the left lower extremity joint without contrast. Exam focused on the knee. COMPARISON: CR XR knee LT 3V* [id number] 04/27/2025 4:07 PM FINDINGS: Bones/joints: There is subchondral reactive marrow changes at the extreme medial edge of the medial tibial plateau and to a lesser extent of the extreme medial edge of the distal articular margin of the medial femoral condyle. There is no fracture plane identified. There is no cortical depression. There is minimal osteophytosis at the tibial spines. Degenerative subchondral marrow changes and small degenerative subchondral cyst formation is present within the patella near the apex of the lateral patellar facet. There is no joint effusion. There is moderate to severe cartilage thinning and loss of the superior central aspect of the lateral patellar facet with near full-thickness geographic cartilage absence over a small geographic region of approximately 9 mm. There is mild chondromalacia throughout the remainder of the medial and lateral patellar facet cartilage. The cartilage within the trochlear groove is unremarkable. The cartilage throughout the medial and lateral tibial plateau and central weight-bearing aspect of the femoral condyles is maintained. Bursae: There is a small Quigley's cyst. Posteroinferior to the Quigley's cyst at the dorsal myofascial margin of the medial head of the gastrocnemius muscle is a small amount of edema likely representing fluid dissecting from a rupture of the Quigley's cyst. Medial meniscus: There is a small focal free edge radial tear of the posterior horn of the medial meniscus versus postsurgical debridement/partial meniscectomy. Please correlate with surgical history. Lateral meniscus: The lateral meniscus is intact. Atelectatic Anterior cruciate ligament: The ACL is intact. Posterior cruciate ligament: The PCL is intact. Medial capsule and supporting structures: Unremarkable. No tear. Lateral capsule and supporting structures: Unremarkable. No tear. Extensor mechanism of knee: The extensor mechanism of the knee including the quadriceps tendon and the patellar ligament are intact. Both the medial and lateral patellar retinaculum are intact. Soft tissues: There is mild nonspecific prepatellar soft tissue edema. There is also some mild soft tissue edema anterior to the lateral patellar retinaculum. MR/MR knee LT wo con* [id number] IMPRESSION: 1. Very small free edge radial tear versus postsurgical changes of the posterior horn of the medial meniscus. 2. Mild patellofemoral compartment degenerative osteoarthritis with small geographic region of prominent cartilage thinning and loss at the superior central aspect of the lateral patellar facet. 3. Focal bone bruising at the medial edge of the medial tibial plateau and medial femoral condyle. 4. Small Quigley's cysts with evidence of rupture.
== END 2025-05-21 06:48 | disposition home or self-care (01) ==
LOC: RAD 06:47
PROVIDERS: PCP Family Medicine; Visit Provider Orthopaedic Surgery
DX: M25.562 Pain in left knee (principal)
CPT/HCPCS: 73721

== ENCOUNTER → 2025-05-26 15:52 | Outpatient (BNVA) | payer BC, SELFPAY | PROVIDERS: Visit Provider Orthopaedic Surgery | DX: Z01.818 Encounter for other preprocedural examination (principal) | CPT/HCPCS: 36415; 80053; 81001; 85025 ==

== ENCOUNTER 2025-05-27 07:29 | Outpatient (CLI) | payer BC, SELFPAY ==
--- NOTE | 2025-05-27 07:45 | USCV_ITS ---
Mino García Age: 54 Gender: M : 1970 Exam Date: 05/27/2025 08:09 Ordering Phys: Jian Burleson M.D ([email or web address]) Technologist: Exam Location: [facility] – [place] Indication: pre op BP: 145 / 70 HR: 87 Rhythm: Sinus Technical Quality: Adequate MEASUREMENTS (Male / Female) Normal Values 2D ECHO LV Diastolic Diameter PLAX 5.0 cm 4.2 - 5.9 / 3.9 - 5.3 cm IVS Diastolic Thickness 1.3 cm 0.6 - 1.0 / 0.6 - 0.9 cm IVS Systolic Thickness 2.2 cm LVPW Diastolic Thickness 1.3 cm 0.6 - 1.0 / 0.6 - 0.9 cm LVPW Systolic Thickness 1.5 cm LVOT Diameter 2.1 cm LV Ejection Fraction 2D Teich 68.4 % LV Ejection Fraction MOD 4C 66.0 % LV Ejection Fraction MOD 2C 54.7 % LV Ejection Fraction 2C AL 55.8 % LA Diameter 3.5 cm RA Systolic Volume 4C AL 52.6 ml RA Systolic Volume 4C MOD 50.9 ml LA Sys Volume AL 73.0 cm cubed LA Sys Volume Index AL 28.3 cm cubed/m squared IVC Diameter 3.0 cm M-MODE LA Ao Ratio MM 1.4 AV Cusp Separation MM 2.3 cm DOPPLER AV Peak Velocity 138.0 cm/s LVOT Peak Velocity 140.0 cm/s AV Area Cont Eq vti 3.8 cm squared AV Area Cont Eq pk 3.4 cm squared MV Peak Velocity 122.0 cm/s MV Area PHT 4.2 cm squared Mitral E to A Ratio 1.6 TR Peak Velocity 242.0 cm/s TR Peak Gradient 23.4 mmHg TV Peak E Velocity 99.0 cm/s PV Peak Velocity 127.0 cm/s FINDINGS Left Ventricle Left ventricle is normal in size. LV systolic function is normal with EF of 60-65%. No regional wall abnormalities. Right Ventricle Normal in size and function Right Atrium Normal in size Left Atrium Normal in size IA Septum Grossly normal Mitral Valve Strucuturally normal mitral valve. Mild mitral regurgitation. Aortic Valve Structurally normal aortic valve. No significant stenosis or regurgitation. Tricuspid Valve Mild tricuspid regurgitation. Pulmonary artery systolic pressure is normal Pulmonic Valve Not well visualized Pericardium Normal Aorta Normal in size IVC Not well visualized CONCLUSIONS LV systolic function is normal with EF of 60-65% Mild mitral regurgitation. Mild tricuspid regurgitation. Jian Burleson MD (Electronically Signed) Final Date: 29 May 2025 10:12 S
== END 2025-05-27 07:30 | disposition home or self-care (01) ==
PROVIDERS: PCP Internal Medicine; Visit Provider Internal Medicine
DX: R07.9 Chest pain, unspecified (principal); R06.02 Shortness of breath; Z01.810 Encounter for preprocedural cardiovascular examination; I08.1 Rheumatic disorders of both mitral and tricuspid valves
CPT/HCPCS: 93306

== ENCOUNTER 2025-05-28 09:52 | Outpatient (CLI) | payer BC, SELFPAY | END 2025-05-28 09:53 | disposition home or self-care (01) | LOC: SPT 09:52 | PROVIDERS: PCP Internal Medicine; Visit Provider Podiatrist Foot & Ankle Surgery | DX: Z46.89 Encounter for fitting and adjustment of other specified devices (principal); M76.829 Posterior tibial tendinitis, unspecified leg | CPT/HCPCS: 97161 ==

== ENCOUNTER 2025-05-29 10:46 | Day surgery (SDC) | payer BC, SELFPAY ==
[2025-05-29] VITALS (11 sets, daily range): BP systolic 131–161; BP diastolic 82–90; PULSE 65–79; RESP 14–18; TEMP 36.4–36.7; O2SAT 90–95; BMI 36.3
--- NOTE | 2025-05-29 11:49 | P.ANESASSM_ITS ---
Pre-Anesthetic Assessment Height/Weight: Height 6 ft 1 in Weight 275 lb Temp Pulse Resp BP Pulse Ox O2 Del Method 97.5 F L 68 18 150/90 95 Room Air 05/29/25 10:51 05/29/25 10:51 05/29/25 10:51 05/29/25 10:51 05/29/25 10:51 05/29/25 11:03 Preop Diagnosis: Knee pain Operation Date: 05/29/25 12:10 Proposed Procedures p Meniscectomy Arthroscopy Knee Arthroscopic Medial Meniscectomy(Left) - Rk Alas MD Was Beta John taken within 24 hours: Yes Was Clonidine taken within 24 hours: N/A Last intake: Intake Last Liquid Date 05/28/25 Last Liquid Time 19:00 Last Solid Date 05/28/25 Last Solid Time :00 Social No alcohol and No tobacco Exam alert, oriented x 3, clear to auscultation bilaterally and regular rate & rhythm Airway Submandibular: within normal limits Cervical ROM: within normal limits Mallampati: Class III Dentition: full Anesthetic Plan ASA status: 3 Anesthesia: General Other: No prior issues with anesthesia NPO since yesterday evening History of hypertension on metoprolol and amlodipine. Preop BP 150/90 MIKE on CPAP GERD on Protonix Recent labs 05/26/2025 reviewed acceptable for procedure Patient was seen by cardiology on 05/11/2025 and they ordered a Leigh Ann scan and an echo. Called Dr. Mullins myself this morning and discussed the echo. EF 55 to 60% with no RWMA. Patient is currently asymptomatic with no chest pain. Cardiology states he is cleared for procedure today Plan for general anesthesia Medications/Allergies Home Medications ?Medication ?Instructions ?Recorded ?Confirmed ?Last Taken ?Type cabergoline 0.5 mg tablet 0.5 mg PO .2 x week 07/05/20 05/28/25 05/28/25 20:00 History loratadine 10 mg tablet (Allergy 10 mg PO DAILY 05/28/25 05/28/25 Histo ry Relief (loratadine)) ropinirole 0.25 mg tablet 0.25 mg PO BEDTIME 07/05/20 05/28/25 05/28/25 20:00 History simvastatin 20 mg tablet 20 mg PO DAILY 07/05/2005/1105/28/25 20:00 History pantoprazole 40 mg tablet,delayed 40 mg PO BID 6 weeks #84 tabs 11/09/23 05/28/25 05/29/25 06:30 Rx release (Protonix) cam boot, left #1 ea 03/19/25 05/26/25 Unkn own Rx custom Blanca brace, left #1 ea 03/19/25 05/26/25 Unk nown Rx custom orthotics #1 ea 04/09/25 05/26/25 Unkn own Rx amlodipine 10 mg tablet 10 mg PO DAILY 05/28/2505/1105/29/25 06:30 History metoprolol succinate 25 mg 25 mg PO DAILY 05/28/2505/28/25 20:00 History tablet,extended release 24 hr Allergies Allergy/AdvReac Type Severity Reaction Status Date / Time cefazolin (From [facility]) Allergy Lungs fill Verified 05/29/25 10:56 up codeine Allergy Hives Verified 05/29/25 10:56 iodine Allergy Hives Verified 05/29/25 10:56 Sulfa (Sulfonamide Allergy Kidney pain Verified 05/29/25 10:56 Antibiotics) Current Medications Generic Name Dose Route Start Last Admin Trade Name Freq PRN Reason Stop Dose Admin Sodium Chloride 1,000 mls @ 30 mls/hr 05/29/25 11:00 05/29/25 11:28 Sodium Chloride 0.9% IV 05/30/25 10:59 30 mls/hr .Q24H DORIE Administration PFSH Anesthesia Medical History History of colon polyps Gout Obstructive sleep apnea Peptic ulcer disease Tremor Hyperlipidemia Hypertension Surgical History Hx of appendectomy H/O arthroscopy Family History Father CAD (coronary artery disease) Brother CAD (coronary artery disease) Social History Smoking and tobacco/nicotine status: never used tobacco/nicotine Alcohol intake: never Substance/Drug Use: never Data Anesthesia Cardiac Studies: Echocardiogram 05/27/25 Sestamibi Stress Test (Cardiology) 09/06
--- NOTE | 2025-05-29 12:42 | W.PM.OPSUD ---
Surgery/Procedure H&P Update DATE OF PROCEDURE: May 29, 2025 DATE H&P PERFORMED: 05/26/25 H&P UPDATE INFORMATION: I have reviewed H&P completed within last 30 days, I have examined patient prior to procedure and No changes to prior documentation PREOP DIAGNOSIS: Knee pain PLANNED PROCEDURE: Operation Date: 05/29/25 12:10 Proposed Procedures p Meniscectomy Arthroscopy Knee Arthroscopic Medial Meniscectomy(Left) - Rk Alas MD
--- NOTE | 2025-05-29 14:12 | PM.OP ---
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 He failed conservative measures and subsequently on clinical exam is felt he had a medial meniscal tear. Subsequent MRI was obtained and my personal review of all images demonstrate a radial tear of the posterior horn medial meniscus. Therefore this time patient was offered a diagnostic knee arthroscopy with all indicated procedures. Patient has had this done before and this knee has a well understanding of this. All risk benefits treatment alternatives were discussed patient was agreeable to proceed with surgery Procedure: After obtaining her consent patient taken the operating room placed on the operative supine position general anesthetic administered. Once Konesky was achieved patient's left leg was placed in a leg guzman and left foot the bed was dropped. Right leg was padded out appropriately. Left leg was prepped and draped usual fashion. After surgical timeout standard anterior medial and lateral portals were made with #11 blade and camera cannulas placed the lateral portal. Anterior knee was undertaken starting in the suprapatellar pouch there is some slight erythema in the tissues up there otherwise no other gross abnormalities. Weightbearing surface of the patella had grade I/II chondromalacia that was debrided out of stable cartilage space mechanical shaver. IT groove had some mild cracking of the articular surface however no breakdown or loss of cartilage. Medial gutter was clear, medial compartment demonstrated a flap tear of the posterior horn medial meniscus. This is debrided with small hand instruments and mechanical shaver demonstrated cartilage space. This involved about the posterior one third. There is also grade II chondromalacia of the medial femoral condyle also debrided mechanical shaver. Intercondylar notch demonstrated intact anterior crucial ligament. Lateral compartment demonstrated grade I/II chondromalacia of the lateral tibial plateau. There is fraying of the inner edge of the lateral meniscus debrided down to stable cartilage space mechanical shaver. Knee was then washed with copious amounts of sterile irrigation. All cannulas removed. Wounds were closed with 3-0 Prolene interrupted sutures. Wounds were injected with half percent Marcaine plain for postoperative pain management. The remainder is injected endotracheally. Wounds are clean and dry dressed in Xeroform gauze, sterile gauze squares, sterile Webril, Timothy wrap for compression. Patient was awakened transferred cover in stable condition
[2025-05-29] MEDS: BUPivacaine 0.5% INJ 30 mL XX (14:20)
[2025-05-29] MEDS: oxyCODONE-APAP 5-325 mg Tablet 1 TAB PO (15:15)
--- NOTE | 2025-05-29 15:15 | ANE.PACU2 ---
Inpatient post-anesthesia follow up: Airway intact: Yes Vital signs: Temperature 97.8 F Pulse Rate 68 Respiratory Rate 18 Blood Pressure 141/82 Pulse Oximetry 93 Oxygen Delivery Me thod Room Air Oxygen Flow Rate Fraction of Inspir ed Oxygen Hydration adequate: Yes Nausea and vomiting: No Pain level: 1 Mental status: Baseline
== END 2025-05-29 15:15 | disposition home or self-care (01) ==
PROVIDERS: PCP Internal Medicine; Visit Provider Orthopaedic Surgery
PROC: (CPT 29880; principal; 2025-05-29 12:00)
DX: M23.92 Unspecified internal derangement of left knee (principal); M94.262 Chondromalacia, left knee; S83.242A Other tear of medial meniscus, current injury, left knee, initial encounter; S83.282A Other tear of lateral meniscus, current injury, left knee, initial encounter; X58.XXXA Exposure to other specified factors, initial encounter; G47.33 Obstructive sleep apnea (adult) (pediatric); Z99.89 Dependence on other enabling machines and devices; I10 Essential (primary) hypertension; K21.9 Gastro-esophageal reflux disease without esophagitis; E78.5 Hyperlipidemia, unspecified; K27.9 Peptic ulcer, site unspecified, unspecified as acute or chronic, without hemorrhage or perforation
CPT/HCPCS: 29880; J2250; J2704; J3010; J3490; J7030; J9999

== ENCOUNTER 2025-06-08 07:55 | Outpatient (CLI) | payer BC, SELFPAY ==
[2025-06-08 08:25] VITALS: BMI 36.3
--- NOTE | 2025-06-08 08:26 | ECG_ITS ---
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 The perfusion scan will be documented separately. DATA: Baseline heart rate was 61 beats per minute. Baseline blood pressure was 136/79 millimeters of mercury. Target heart rate was 165. Maximum heart rate achieved was 134. which was 81 % of the predicted target heart rate. Maximum blood pressure was 152/79 millimeters of mercury. The reason for ending the test was completion of the protocol. The patient did not experience any symptoms. ELECTROCARDIOGRAM: BASELINE: Sinus rhythm. Normal axis. Right bundle branch block, otherwise, no ST-T changes suggestive of ischemia noted. No arrhythmia noted. EXERCISE: After Lexiscan injection, no ST-T changes suggestive of ischemic noted. No arrhythmia noted. CONCLUSION: Please note due to baseline abnormality of the EKG specificity and sensitivity of the EKG portion of LexiScan MIBI stress test will be low 1. EKG not suggestive of ischemia 2. Lexiscan injection unremarkable. 3. Perfusion scan will be documented separately. Electronically Signed On 06-11-2025 15:46:51 TELEVISION PARTS TESTER by DOM SHAH [email or web address]
--- NOTE | 2025-06-08 08:26 | NMCV_ITS ---
NM mickie perf SPECT r/s* [id number] Mino García Age: 54 Gender: M : 1970 Exam Date: 06/08/2025 08:54 Ordering Phys: Jian Burleson M.D ([email or web address]) Technologist: CARLEY Lawrence Exam Location: [facility] Indications: cp STRESS TEST Please see separate stress test report in [facility] for full findings IMAGE PROTOCOL Rest/Stress 1 Lexiscan Day Radiopharmaceutical Dose (mCi) Administration Site Administered by Rest: Tc-99m 10.5 IV Amelia Cardona, CHILDBIRTH EDUCATOR Sestamibi Stress:Tc-99m 32.3 IV Amelia Cardona, CHILDBIRTH EDUCATOR Sestamibi Rest: 08-Jun-2025 60 Discovery 630 Stress: 08-Jun-2025 30 Discovery 630 0.4mg Lexiscan. Images obtained in supine and prone position. SPECT RESULTS Technical Quality: Good Raw Data Analysis: Normal Image Corrections: No attenuation or motion correction applied Summed Stress Score: 1 Summed Rest Score: 0 Summed Difference Score: 1 PERFUSION FINDINGS Medium size area of old myocardial infarction surrounded by medium size area of moderate ischemia noted in RCA territory. FUNCTIONAL RESULTS (calculated via Gated SPECT) Stress Image LV EF (%): 64 Stress EDV (mL):152 TID: 1.15 Stress ESV (mL):54 FUNCTIONAL FINDINGS: Inferior wall hypokinesis. IMPRESSIONS Medium size area of old myocardial infarction surrounded by medium size area of moderate ischemia noted in RCA territory. Rosario Boswell MD (Electronically Signed) Final Date: 08 June 2025 15:31 S
[2025-06-08 09:40] VITALS: BP 140/74; PULSE 80
== END 2025-06-08 07:56 | disposition home or self-care (01) ==
LOC: CDL 07:58
PROVIDERS: PCP Internal Medicine; Visit Provider Internal Medicine
DX: R07.9 Chest pain, unspecified (principal); R06.02 Shortness of breath; I25.2 Old myocardial infarction; I25.9 Chronic ischemic heart disease, unspecified; I51.89 Other ill-defined heart diseases
CPT/HCPCS: 36415; 78452; 93017; 96374; A9500; J2785